=== PATIENT | female | born 1990 | race Caucasian/White ===

== ENCOUNTER 2018-09-06 03:41 | Emergency (ER) | payer OTHER ==
[2018-09-06] MEDS ORDERED: Ondansetron 4 MG/2 ML SDV IVPUSH ONE (04:14)
[2018-09-06] MEDS ORDERED: Sodium Chloride 0.9% 1,000 ML IV SCH (04:15)
[2018-09-06 04:46] LABS: CHLORIDE,CL 104 mmol/L (98-107); SODIUM,NA 139 mmol/L (136-145)
[2018-09-06] MEDS ORDERED: HYDROmorphone 1 MG/ML Syringe IVPUSH PRN (04:56)
[2018-09-06] MEDS ORDERED: Ketorolac 30 MG/ML SDV ONE (04:56)
[2018-09-06] MEDS ORDERED: Ketorolac 30 MG/ML SDV IVPUSH ONE (05:00)
[2018-09-06] MEDS ORDERED: Iopamidol 755 MG/ML 500 ML Multipack Bottle IVPUSH ONE (05:12)
--- NOTE | 2018-09-06 05:39 | CT ---
INDICATION: Patient w/bilateral abdominal pain for 10 hrs TECHNIQUE: CT Abdomen and pelvis with i.v. contrast. Coronal and sagittal reformats were obtained. CONTRAST: 100 mL Isovue 370 COMPARISON: None FINDINGS: Lower chest: Unremarkable. Liver: Unremarkable. Spleen: Unremarkable. Pancreas: Unremarkable. Gallbladder: Multiple radiolucent gallstones are present. Kidney: Unremarkable. No kidney or ureteral stones or obstruction seen. Adrenal: Unremarkable. Bowel: Unremarkable. The appendix is normal in appearance and size. It is best seen on coronal image 50. Vascular: Unremarkable. Lymph: Unremarkable. Peritoneum: Unremarkable. No pneumoperitoneum is seen. No significant ascites is noted. Pelvis: There is a corpus luteum cyst in the left ovary measuring 1.5 cm and follicle present measuring 1.4 cm. Soft tissue: Unremarkable. Bone: Unremarkable for age. IMPRESSION: 1. Multiple radiolucent gallstones are present. Dictated by Maxx Juarez MD @ 09/06/2018 5:37:35 AM Please note that all CT scans at this facility use dose modulation, iterative reconstruction, and/or weight-based dosing when appropriate to reduce radiation dose to as low as reasonably achievable. Dictated by: Maxx Juarez MD @ 09/06/2018 05:37:45 (Electronically Signed)
--- NOTE | 2018-09-06 06:01 | EDM.PDOC ---
ED HPI GENERAL MEDICAL PROBLEM - General Chief Complaint: Abdominal Pain Stated Complaint: LOWER BACK PAIN Time Seen by Provider: 09/06/18 06:01 - History of Present Illness INITIAL COMMENTS - FREE TEXT/NARRATIVE: HISTORY AND PHYSICAL: History of present illness: Patient's 27-year-old white female transferred concern of right-sided abdominal and flank pain. She's had no fever no chills no trauma denies urinary symptoms denies denies other concern. Review of systems: As per history of present illness and below otherwise all systems reviewed and negative. Past medical history: As per history of present illness and as reviewed below otherwise noncontributory. Surgical history: As per history of present illness and as reviewed below otherwise noncontributory. Social history: No reported history of drug or alcohol abuse. Family history: As per history of present illness and as reviewed below otherwise noncontributory. Physical exam: HEENT: Atraumatic, normocephalic, pupils reactive, negative for conjunctival pallor or scleral icterus, mucous membranes moist, throat clear, neck supple, nontender, trachea midline. Lungs: Clear to auscultation, breath sounds equal bilaterally, chest nontender. Heart: S1S2, regular, negative for clicks, rubs, or JVD. Abdomen: Soft, nondistended, mild right sided nonlocalized tenderness to deep palpation in the region of right upper quadrant Negative for masses or hepatosplenomegaly. Negative for costovertebral tenderness. Pelvis: Stable nontender. Genitourinary: Deferred. Rectal: Deferred. Extremities: Atraumatic, negative for cords or calf pain. Neurovascular unremarkable. Neuro: Awake, alert, oriented. Cranial nerves II through XII unremarkable. Cerebellum unremarkable. Motor and sensory unremarkable throughout. Exam nonfocal. Diagnostics: CBC CMP UA hCG CT abdomen and pelvis Therapeutics: Saline 1 L bolus Toradol 30 IV Impression: #1 right-sided abdominal pain #2 cholelithiasis with biliary colic Definitive disposition and diagnosis as appropriate pending reevaluation and review of above. Flank Pain Score (Numeric/FACES): 8 - Related Data Allergies Allergy/AdvReac Type Severity Reaction Status Date / Time azithromycin Allergy Other Verified 09/06/18 03:56 gentamicin Allergy Swollen Verified 09/06/18 03:56 Eyes Sulfa (Sulfonamide Allergy Other Verified 09/06/18 03:56 Antibiotics) Home Meds: Home Meds . 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: Neurological History: Reports: None Psychiatric History: Reports: Anxiety, Depression Endocrine/Metabolic History: Reports: None Hematologic History: Reports: None Immunologic History: Reports: None Oncologic (Cancer) History: Reports: None Dermatologic History: Reports: None - Infectious Disease History Infectious Disease History: Reports: Chicken Pox, Mononucleosis - Past Surgical History Head Surgeries/Procedures: Reports: None HEENT Surgical History: Reports: Oral Surgery, Tonsillectomy Other Musculoskeletal Surgeries/Procedures:: R shoulder sx Social & Family History - Tobacco Use Smoking Status *Q: Current Every Day Smoker Years of Tobacco use: 10 Packs/Tins Daily: 1 - Caffeine Use Caffeine Use: Reports: Soda - Recreational Drug Use Recreational Drug Use: No ED ROS GENERAL - Review of Systems Review Of Systems: ROS reveals no pertinent complaints other than HPI. ED EXAM, GENERAL - Physical Exam Exam: See Below (See dictation) Course - Vital Signs Last Recorded V/S: Last Vital Signs Temp 36.0 C 09/06/18 03:52 Pulse 90 09/06/18 03:52 Resp BP 120/71 09/06/18 03:52 Pulse Ox 96 09/06/18 03:52 - Orders/Labs/Meds Orders: Active Orders 24 hr Category Date Time Status HYDROmorphone [Dilaudid] Med 09/06/18 04:56 Active 1 mg IVPUSH ONETIME PRN Sodium Chloride 0.9% [Normal Saline] 1,000 ml Med 09/06/18 04:15 Active IV ASDIRECTED Medication Orders Hydromorphone HCl (Dilaudid) 1 mg IVPUSH ONETIME PRN PRN Reason: Pain Sodium Chloride (Normal Saline) 1,000 mls @ 999 mls/hr IV ASDIRECTED CARMEN Last Admin: 09/06/18 04:18 Dose: 999 mls/hr Labs: Laboratory Tests 09/06/18 09/06/18 09/06/18 Range/Units 04:00 04:00 04:15 WBC 8.51 (4.0-11.0) K/uL RBC 4.34 (4.30-5.90) M/uL Hgb 13.2 (12.0-16.0) g/dL Hct 38.0 (36.0-46.0) % MCV 87.6 (80.0-98.0) fL MCH 30.4 (27.0-32.0) pg MCHC 34.7 (31.0-37.0) g/dL RDW Std Deviation 39.6 (28.0-62.0) fl RDW Coeff of Michaelle 13 (11.0-15.0) % Plt Count 290 (150-400) K/uL MPV 9.30 (7.40-12.00) fL Neut % (Auto) 70.3 (48.0-80.0) % Lymph % (Auto) 20.1 (16.0-40.0) % Kane % (Auto) 7.9 (0.0-15.0) % Eos % (Auto) 1.5 (0.0-7.0) % Baso % (Auto) 0.2 (0.0-1.5) % Neut # (Auto) 6.0 H (1.4-5.7) K/uL Lymph # (Auto) 1.7 (0.6-2.4) K/uL Kane # (Auto) 0.7 (0.0-0.8) K/uL Eos # (Auto) 0.1 (0.0-0.7) K/uL Baso # (Auto) 0.0 (0.0-0.1) K/uL Sodium (136-145) mmol/L Potassium (3.5-5.1) mmol/L Chloride (98-107) mmol/L Carbon Dioxide (21.0-32.0) mmol/L BUN (7.0-18.0) mg/dL Creatinine (0.6-1.0) mg/dL Est Cr Clr Drug Dosing mL/min Estimated GFR (MDRD) ml/min Glucose (74-106) mg/dL Calcium (8.5-10.1) mg/dL Total Bilirubin (0.2-1.0) mg/dL AST (15-37) IU/L ALT (14-63) IU/L Alkaline Phosphatase (46-116) U/L Total Protein (6.4-8.2) g/dL Albumin (3.4-5.0) g/dL Globulin (2.6-4.0) g/dL Albumin/Globulin Ratio (0.9-1.6) Lipase (73-393) U/L Urine Color YELLOW Urine Appearance CLEAR Urine pH 5.5 (5.0-8.0) Ur Specific [place] >= 1.030 (1.001-1.035) Urine Protein NEGATIVE (NEGATIVE) mg/dL Urine Glucose (UA) NEGATIVE (NEGATIVE) mg/dL Urine Ketones NEGATIVE (NEGATIVE) mg/dL Urine Occult Blood SMALL H (NEGATIVE) Urine Nitrite NEGATIVE (NEGATIVE) Urine Bilirubin NEGATIVE (NEGATIVE) Urine Urobilinogen 0.2 (<2.0) EU/dL Ur Leukocyte Esterase NEGATIVE (NEGATIVE) Urine RBC 0-2 (0-2/HPF) Urine WBC 0-1 (0-5/HPF) Ur Epithelial Cells MODERATE (NONE-FEW) Urine Bacteria RARE (NEGATIVE) Urine HCG, Qual NEGATIVE (NEGATIVE) 09/06/18 Range/Units 04:15 WBC (4.0-11.0) K/uL RBC (4.30-5.90) M/uL Hgb (12.0-16.0) g/dL Hct (36.0-46.0) % MCV (80.0-98.0) fL MCH (27.0-32.0) pg MCHC (31.0-37.0) g/dL RDW Std Deviation (28.0-62.0) fl RDW Coeff of Michaelle (11.0-15.0) % Plt Count (150-400) K/uL MPV (7.40-12.00) fL Neut % (Auto) (48.0-80.0) % Lymph % (Auto) (16.0-40.0) % Kane % (Auto) (0.0-15.0) % Eos % (Auto) (0.0-7.0) % Baso % (Auto) (0.0-1.5) % Neut # (Auto) (1.4-5.7) K/uL Lymph # (Auto) (0.6-2.4) K/uL Kane # (Auto) (0.0-0.8) K/uL Eos # (Auto) (0.0-0.7) K/uL Baso # (Auto) (0.0-0.1) K/uL Sodium 139 (136-145) mmol/L Potassium 3.6 (3.5-5.1) mmol/L Chloride 104 (98-107) mmol/L Carbon Dioxide 24.1 (21.0-32.0) mmol/L BUN 13 (7.0-18.0) mg/dL Creatinine 0.8 (0.6-1.0) mg/dL Est Cr Clr Drug Dosing 91.21 mL/min Estimated GFR (MDRD) > 60.0 ml/min Glucose 122 H (74-106) mg/dL Calcium 8.8 (8.5-10.1) mg/dL Total Bilirubin 0.1 L (0.2-1.0) mg/dL AST 16 (15-37) IU/L ALT 25 (14-63) IU/L Alkaline Phosphatase 76 (46-116) U/L Total Protein 6.8 (6.4-8.2) g/dL Albumin 3.5 (3.4-5.0) g/dL Globulin 3.3 (2.6-4.0) g/dL Albumin/Globulin Ratio 1.1 (0.9-1.6) Lipase 171 (73-393) U/L Urine Color Urine Appearance Urine pH (5.0-8.0) Ur Specific [place] (1.001-1.035) Urine Protein (NEGATIVE) mg/dL Urine Glucose (UA) (NEGATIVE) mg/dL Urine Ketones (NEGATIVE) mg/dL Urine Occult Blood (NEGATIVE) Urine Nitrite (NEGATIVE) Urine Bilirubin (NEGATIVE) Urine Urobilinogen (<2.0) EU/dL Ur Leukocyte Esterase (NEGATIVE) Urine RBC (0-2/HPF) Urine WBC (0-5/HPF) Ur Epithelial Cells (NONE-FEW) Urine Bacteria (NEGATIVE) Urine HCG, Qual (NEGATIVE) Meds: Medications Generic Name Dose Route Start Last Admin Trade Name Freq PRN Reason Stop Dose Admin Hydromorphone HCl 1 mg 09/06/18 04:56 Dilaudid IVPUSH ONETIME PRN Pain Sodium Chloride 1,000 mls @ 999 mls/hr 09/06/18 04:15 09/06/18 04:18 Normal Saline IV 999 mls/hr ASDIRECTED CARMEN Administration Discontinued Medications Generic Name Dose Route Start Last Admin Trade Name Chrissy PRN Reason Stop Dose Admin Iopamidol 100 ml 09/06/18 05:12 09/06/18 05:16 Isovue Multipack-370 (76%) IVPUSH 09/06/18 05:13 100 ml ONETIME ONE Administration Ketorolac Tromethamine Confirm 09/06/18 04:56 09/06/18 05:04 Toradol Administered 09/06/18 04:57 30 mg Dose Administration 30 mg .ROUTE .STK-MED ONE Ondansetron HCl 4 mg 09/06/18 04:14 09/06/18 04:18 Zofran IVPUSH 09/06/18 04:15 4 mg ONETIME ONE Administration Departure - Departure Time of Disposition: 06:00 Disposition: Home, Self-Care 01 Condition: Good Clinical Impression: Abdominal pain, Cholelithiasis - Discharge Information Referrals: PCP,None [Primary Care Provider] - Additional Instructions: The following information is given to patients seen in the emergency department who are being discharged to home. This information is to outline your options for follow-up care. We provide all patients seen in our emergency department with a follow-up referral. The need for follow-up, as well as the timing and circumstances, are variable depending upon the specifics of your emergency department visit. If you don't have a primary care physician on staff, we will provide you with a referral. We always advise you to contact your personal physician following an emergency department visit to inform them of the circumstance of the visit and for follow-up with them and/or the need for any referrals to a consulting specialist. The emergency department will also refer you to a specialist when appropriate. This referral assures that you have the opportunity for followup care with a specialist. All of these measure are taken in an effort to provide you with optimal care, which includes your followup. Under all circumstances we always encourage you to contact your private physician who remains a resource for coordinating your care. When calling for followup care, please make the office aware that this follow-up is from your recent emergency room visit. If for any reason you are refused follow-up, please contact the [facility] emergency department at and asked to speak to the emergency department charge nurse. [facility] - General Surgery Professional Building [address] [place] [address], [address] [place] [address] Hydrocodone Zofran as prescribed follow-up Gen. surgery: Scheduled appointment diet as discussed return as needed as discussed - My Orders Last 24 Hours: My Active Orders 09/06/18 04:15 Sodium Chloride 0.9% [Normal Saline] 1,000 ml IV ASDIRECTED 09/06/18 04:56 HYDROmorphone [Dilaudid] 1 mg IVPUSH ONETIME PRN - Assessment/Plan Last 24 Hours: My Active Orders 09/06/18 04:15 Sodium Chloride 0.9% [Normal Saline] 1,000 ml IV ASDIRECTED 09/06/18 04:56 HYDROmorphone [Dilaudid] 1 mg IVPUSH ONETIME PRN
== END 2018-09-06 06:40 | disposition home or self-care (01) ==
LOC: MW.ED 03:41
DX: K80.20 Calculus of gallbladder without cholecystitis without obstruction (principal); F17.210 Nicotine dependence, cigarettes, uncomplicated; Z88.1 Allergy status to other antibiotic agents; Z88.2 Allergy status to sulfonamides
CPT/HCPCS: 36415; 74177; 80053; 81001; 81025; 83690; 85025; 96361; 96374; 96375; 99284; J1885; J2405; J7040; Q9967

== ENCOUNTER 2018-09-22 07:30 | Day surgery (SDC) | payer OTHER ==
[~2018-09-22 07:30] MED LIST: Bupivacaine 25%/EPINEPHrine/PF 30 ML ONE; Lactated Ringers 1,000 ML IV SCH; Octyl 2-Cyanoacrylate 1 Tube ONE; ceFAZolin 2 GM in Premix Bag 1 BAG IV ONE
[2018-09-22] MEDS ORDERED: Scopolamine 1.5 MG Transdermal Patch TRDERM PRN (08:59)
[2018-09-22] MEDS ORDERED: Acetaminophen/oxyCODONE 325-5 MG Tab PO PRN (09:00)
--- NOTE | 2018-09-22 09:02 | PCM.PREANE ---
Preanesthetic Assessment - Anesthesia/Transfusion/Family Hx Anesthesia History: Prior Anesthesia Without Reaction Family History of Anesthesia Reaction: No Transfusion History: No Prior Transfusion(s) Intubation History: Unknown - Review of Systems General: No Symptoms Pulmonary: No Symptoms Cardiovascular: No Symptoms Gastrointestinal: Abdominal Pain Neurological: No Symptoms Other: Reports: None - Physical Assessment NPO Status Date: 09/21/18 NPO Status Time: 23:45 O2 Sat by Pulse Oximetry: 100 Respiratory Rate: 16 Vital Signs: Last Vital Signs Temp 36.4 C 09/22/18 07:45 Pulse 97 09/22/18 07:45 Resp 16 09/22/18 07:45 BP 110/73 09/22/18 07:45 Pulse Ox 100 09/22/18 07:45 Height: 1.63 m Weight: 94.801 kg ASA Class: 2 Mental Status: Alert & Oriented x3 Airway Class: Mallampati = 2 Dentition: Reports: Normal Dentition Thyro-Mental Finger Breadths: 3 Mouth Opening Finger Breadths: 3 ROM/Head Extension: Full Lungs: Clear to Auscultation, Normal Respiratory Effort Cardiovascular: Regular Rate, Regular Rhythm - Lab Values: Laboratory Last Values Urine HCG, Qual NEGATIVE (NEGATIVE) 09/22/18 07:36 - Allergies Allergies/Adverse Reactions: Allergies Allergy/AdvReac Type Severity Reaction Status Date / Time gentamicin Allergy Swollen Verified 09/19/18 08:05 Eyes Sulfa (Sulfonamide Allergy Cannot Verified 09/19/18 08:05 Antibiotics) Remember - Blood Blood Available: No - Anesthesia Plan Pre-Op Medication Ordered: None - Acknowledgements Anesthesia Type Planned: General Anesthesia Pt an Appropriate Candidate for the Planned Anesthesia: Yes Alternatives and Risks of Anesthesia Discussed w Pt/Guardian: Yes Pt/Guardian Understands and Agrees with Anesthesia Plan: Yes PreAnesthesia Questionnaire Other HEENT History: wears glasses/contacts Cardiovascular History: Reports: None Respiratory History: Reports: None Gastrointestinal History: Reports: None Genitourinary History: Reports: Renal Calculus 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: Musculoskeletal History: Reports: Other (See Below) Other Musculoskeletal History: DJD Neurological History: Reports: None Psychiatric History: Reports: Anxiety, Depression Endocrine/Metabolic History: Reports: Obesity/BMI 30+ Hematologic History: Reports: None Immunologic History: Reports: None Oncologic (Cancer) History: Reports: None Dermatologic History: Reports: None - Infectious Disease History Infectious Disease History: Reports: Chicken Pox, Mononucleosis - Past Surgical History Head Surgeries/Procedures: Reports: None HEENT Surgical History: Reports: Oral Surgery, Tonsillectomy Cardiovascular Surgical History: Reports: None Respiratory Surgical History: Reports: None GI Surgical History: Reports: None Female Surgical History: Reports: None Endocrine Surgical History: Reports: None Neurological Surgical History: Reports: None Musculoskeletal Surgical History: Reports: Shoulder Surgery Other Musculoskeletal Surgeries/Procedures:: R shoulder sx - SUBSTANCE USE Smoking Status *Q: Current Every Day Smoker (on nicotine patch not smoking at present time) Tobacco Use Within Last Twelve Months: Cigarettes Recreational Drug Use History: No - HOME MEDS Home Medications: Home Meds Nicotine [Nicotine Patch] 1 patch TRDERM ASDIRECTED 09/19/18 [History] - CURRENT (IN HOUSE) MEDS Current Meds: Current Medications Lactated Ringer's (Ringers, Lactated) 1,000 mls @ 125 mls/hr IV ASDIRECTED [facility] Last Admin: 09/22/18 08:00 Dose: 125 mls/hr Scopolamine (Transderm-Scop) 1.5 mg TRDERM Q72H PRN PRN Reason: Nausea Discontinued Medications Cefazolin Sodium/Dextrose 2 gm (/ Premix) 50 mls @ 100 mls/hr IV ONETIME ONE Stop: 09/22/18 02:04 Bupivacaine HCl/Epinephrine Bitart (Sensorc Mpf 0.25%-Epi [id number]) Confirm Administered Dose 30 mls @ as directed .ROUTE .STK-MED ONE Stop: 09/22/18 07:22 Octyl Cyanoacrylate (Dermabond Advance) Confirm Administered Dose 1 applic .ROUTE .STK-MED ONE Stop: 09/22/18 07:22
[2018-09-22] MEDS ORDERED: Rocuronium 100 MG/10 ML Syringe ONE (09:04)
[2018-09-22] MEDS ORDERED: fentaNYL 100 MCG/2 ML SDV ONE ×2 (09:06→10:46)
[2018-09-22] MEDS ORDERED: Midazolam 1 MG/ML 2 ML SDV ONE (09:06)
[2018-09-22] MEDS ORDERED: Propofol 200 MG/20 ML SDV ONE (09:07)
[2018-09-22] MEDS ORDERED: Lidocaine 2% 100 MG/5 ML Syringe ONE (09:07)
[2018-09-22] MEDS ORDERED: ceFAZolin/Dextrose,Iso-Osmotic 2 GM/50 ML Duplex Bag IV ONE (09:36)
[2018-09-22] MEDS ORDERED: HYDROmorphone 2 MG/ML Syringe ONE (10:05)
[2018-09-22] MEDS ORDERED: Glycopyrrolate 0.2 MG/ML SDV ONE ×2 (10:19→11:16)
[2018-09-22] MEDS ORDERED: Dexamethasone 4 MG/ML 5 ML MDV ONE (10:22)
[2018-09-22] MEDS ORDERED: Ketorolac 30 MG/ML SDV ONE (11:04)
[2018-09-22] MEDS ORDERED: Ondansetron 4 MG/2 ML SDV ONE (11:08)
[2018-09-22] MEDS ORDERED: Neostigmine Methylsulfate 1 MG/ML 5 ML Syringe ONE (11:09)
--- NOTE | 2018-09-22 12:43 | PCM.OPNOTE ---
- General Post-Op/Procedure Note Date of Surgery/Procedure: 09/22/18 Operative Procedure(s): 1) lap william. 2) umb hernia rep, no mesh used Findings: gb was yellow and green, interacting w surrounding organs cw chronic and acute cholecystitis; wall is not thickened; umb hernia defect 8 mm, repaired primarily , no mesh used; [id number] Pre Op Diagnosis: cholecystitis, acute and chronic; and umb hernia Post-Op Diagnosis: Same Anesthesia Technique: General ET Tube Primary Surgeon: Fidel Isaac Pathology: sent Complications: None Condition: Good Free Text/Narrative:: Intake & Output 09/21/18 09/22/18 09/22/18 22:59 06:59 14:59 Intake Total 2800 Output Total 75 Balance 9907
--- NOTE | 2018-09-22 14:00 | PCM48HPAN ---
Post Anesthesia Note - EVALUATION WITHIN 48HRS OF ANESTHETIC Vital Signs in Normal Range: Yes Patient Participated in Evaluation: Yes Respiratory Function Stable: Yes Airway Patent: Yes Cardiovascular Function Stable: Yes Hydration Status Stable: Yes Pain Control Satisfactory: Yes Nausea and Vomiting Control Satisfactory: Yes (Pt has slight nausea but refuses further treatment. Says it is improving.) Mental Status Recovered: Yes Resp Rate: 16
--- NOTE | 2018-09-22 15:24 | OR ---
SURGEON: Fidel Isaac MD DATE OF PROCEDURE: 09/22/2018 PREOPERATIVE DIAGNOSES: 1. Acute on chronic cholecystitis. 2. Umbilical hernia. POSTOPERATIVE DIAGNOSES: 1. Acute on chronic cholecystitis. 2. Umbilical hernia. PROCEDURES PERFORMED: 1. Laparoscopic cholecystectomy. 2. Umbilical hernia repair, no mesh used. COMPLICATIONS: None. FINDINGS: Gallbladder was distended and interacting with surrounding organ and consistent with chronic and acute cholecystitis, and when the gallbladder opened up, there were many stones, thick and small, and the bile is like pus, purulent in appearance. Wall is not thickened. The umbilical hernia defect was about 8 mm, has to make it bigger to accomodate the gall bladder as there wer too many stones. PROCEDURES PERFORMED: The patient was taken to the operating room and placed in the supine position. After the intubation of general endotracheal anesthesia, the patient's abdomen was prepped and draped in the usual sterile fashion. Using efw-suhl, a 12 mm trocar was placed supraumbilically and then followed with pneumoperitoneum. A 5 mm trocar was placed in the epigastrium and two 5 mm trocars placed in the right upper quadrant. The placement of the last three trocars was done under direct video supervision. Upon gaining entrance to the abdominal cavity, an extensive examination was then performed. The gallbladder was located and identified and retracted to the dome of the liver at the triangle of Calot. The cystic duct was clipped three more times and then using the endoscopic clip, was transected with placement of the endoscopic clip and transection was performed with care, ensuring the posterior prong of the instruments were clearly visualized prior to exercising the procedure. The gallbladder was dissected using electrocautery out of the liver bed and then removed using endoscopic bag through the umbilical site. The gallbladder was removed en bloc and there was no bile spillage and this was then followed with extensive irrigation until the bile was clear from blood and bile. After retrieval of the gallbladder, the umbilical hernia was then assessed. Again, the umbilical hernia defect was 8 mm and using 0 Ethibond simple interrupted it was repaired. No mesh used and followed with a 2-0 Vicryl to tack down the umbilicus to recreate the umbilicus and the skin approximated by use of 4-0 Monocryl and Dermabond. The trocars were then removed under direct video supervision. The 12 mm umbilical site was then closed with deep stitches using 0 Vicryl followed with proximal stitches using 3-0 Vicryl and Dermabond. The other three trocar sites were closed with 3-0 Vicryl followed with approximation of skin with Dermabond. The patient was then awakened and extubated and transferred to the recovery room in hemodynamically stable condition. At the conclusion of the surgery, before closing the abdominal wound, instrument count and sponge count were done and were correct. The patient tolerated the procedure well and there were no intraoperative complications. Dr. Isaac was present through the whole procedure. Just before surgery, a timeout was called. The patient was identified and procedure identified and procedure started. EITAN / KAYLYNN /[id number] MTDD
--- NOTE | 2018-09-27 17:13 | OR ---
SURGEON: Fidel Isaac MD DATE OF PROCEDURE: 09/22/2018 ADDENDUM: I am dictating addendum to the previous dictated op note and transcribed number is [id number]. INCIDENTAL FINDING: There is a small right inguinal hernia. EITAN / KAYLYNN /[id number] MTDD
== END 2018-09-22 14:15 | disposition home or self-care (01) ==
LOC: MW.SDS 07:30
PROVIDERS: ATTEND Surgery
DX: K80.12 Calculus of gallbladder with acute and chronic cholecystitis without obstruction (principal); K42.9 Umbilical hernia without obstruction or gangrene; Z88.2 Allergy status to sulfonamides; Z88.1 Allergy status to other antibiotic agents; F17.210 Nicotine dependence, cigarettes, uncomplicated
CPT/HCPCS: 47562; 81025; A9270; J0690; J1100; J1170; J1885; J2001; J2250; J2405; J2704; J3010; J3490; J7120; 00840; 88304